=== PATIENT | female | born 1985 ===

== ENCOUNTER 2020-12-05 09:18 | Outpatient (RCR) | payer OTHER ==
[2020-11-28 09:20] VITALS: BP 103/59
[2020-11-28] MEDS: IRON SUCROSE 200 MG/10 ML (VENOFER) VIAL IV SCH (09:54)
[2020-11-30 09:14] VITALS: BP 103/59
[2020-11-30] MEDS: IRON SUCROSE 200 MG/10 ML (VENOFER) VIAL IV SCH (09:32)
[2020-12-03 10:07] VITALS: BP 99/57
[2020-12-03] MEDS: IRON SUCROSE 200 MG/10 ML (VENOFER) VIAL IV SCH (11:01)
[~2020-12-05] VITALS: Ht 144.8 cm; Wt 70.5 kg
[~2020-12-05 09:18] MED LIST: DOXY25TA43 PO; FERR325C PO; ONDA-42 PO; PREN1TAB71 PO; PYRI50TA PO; ginger PO
[2020-12-05] MEDS: IRON SUCROSE 200 MG/10 ML (VENOFER) VIAL IV SCH (09:37)
[2020-12-05 09:38] VITALS: BP 107/54
[2020-12-07] MEDS ORDERED: IRON SUCROSE 200 MG/10 ML (VENOFER) VIAL IV ONE (09:15)
[2020-12-07 09:20] VITALS: BP 123/66
== END 2020-12-07 10:37 | disposition home or self-care (01) ==
LOC: SDC 09:18
PROVIDERS: ATTEND Pediatrics
DX: D50.9 Iron deficiency anemia, unspecified (principal)
CPT/HCPCS: 96365